=== PATIENT | male | born 1980 | race Caucasian/White ===

== ENCOUNTER 2016-10-13 16:10 | Emergency (ER) | payer BC, OTHER ==
[2016-10-13 16:46] VITALS: BP 116/70
[2016-10-13] MEDS ORDERED: DOXYcycline CAP(*) 100 MG PO ONE (17:19)
--- NOTE | 2016-10-13 17:26 | UC ---
Skin Complaint HPI - HPI Summary HPI Summary: THIS MORNING PULLED TICK FROM RIGHT FOOT, HAD BEEN HIKING TWO DAYS PRIOR, UNSURE OF HOW LONG IT HAD BEEN THERE. SMALL AMOUNT OF REDNESS SURROUNDING PLACE WHERE TICK HAD BEEN EMBEDDED - History of Current Complaint Chief Complaint: UCLowerExtremity Time Seen by Provider: 10/13/16 17:05 Stated Complaint: RIGHT FOOT COMPLAINT Hx Obtained From: Patient Onset/Duration: Gradual Onset, Lasting Days, Resolved - REMOVED BY PATIENT USING TWEEZERS AT HOME Skin Exposure Onset/Duration: Days Ago Onset Severity: Mild Current Severity: None Location: Discrete - RIGHT DORSUM OF FOOT Aggravating: Nothing Alleviating: Nothing Associated Signs & Symptoms: Positive: Rash - RIGHT DORSUM OF FOOT Related History: Possible Reaction to: Insect - Allergy/Home Medications Allergies/Adverse Reactions: Allergies Allergy/AdvReac Type Severity Reaction Status Date / Time No Known Allergies Allergy Verified 10/13/16 16:42 Review of Systems Constitutional: Negative Skin: Rash - RIGHT DORSUM OF FOOT. Eyes: Negative ENT: Negative Respiratory: Negative Cardiovascular: Negative Gastrointestinal: Negative Genitourinary: Negative Motor: Negative Neurovascular: Negative Musculoskeletal: Negative Neurological: Negative Psychological: Negative All Other Systems Reviewed And Are Negative: Yes PMH/Surg Hx/FS Hx/Imm Hx Previously Healthy: Yes Endocrine History Of: Denies: Diabetes, Thyroid Disease Cardiovascular History Of: Denies: Cardiac Disorders, Hypertension Respiratory History Of: Denies: COPD, Asthma GI/ History Of: Denies: Ulcer - Surgical History Surgical History: Yes Surgery Procedure, Year, and Place: tonsilectomy - Family History Known Family History: Positive: None - Social History Occupation: Employed Full-time Lives: With Family Alcohol Use: Occasionally Substance Use Type: None Smoking Status (MU): Never Smoked Tobacco - Immunization History Most Recent Influenza Vaccination: none Most Recent Tetanus Shot: UTD Most Recent Pneumonia Vaccination: N/A Physical Exam Triage Information Reviewed: Yes Appearance: Well-Appearing, No Pain Distress, Well-Nourished Vital Signs: Initial Vital Signs Temp 98.1 F 10/13/16 16:42 Pulse 64 10/13/16 16:42 Resp 18 10/13/16 16:42 BP 116/70 10/13/16 16:42 Pulse Ox 99 10/13/16 16:42 Vital Signs Reviewed: Yes Eye Exam: Normal ENT Exam: Normal ENT: Positive: Normal ENT inspection, Hearing grossly normal, TMs normal Dental Exam: Normal Neck exam: Normal Neck: Positive: Supple, Nontender Respiratory Exam: Normal Respiratory: Positive: Chest non-tender, Lungs clear, Normal breath sounds, No respiratory distress Cardiovascular Exam: Normal Cardiovascular: Positive: RRR, No Murmur, Pulses Normal Abdominal Exam: Normal Abdomen Description: Positive: Nontender, No Organomegaly Course/Dx - Differential Diagnoses - Skin Complaint Differential Diagnoses: Tick Born Illness - Diagnoses Provider Diagnoses: TICK BITE. TICK BITE PROPHYLAXIS Discharge - Discharge Plan Condition: Stable Disposition: HOME Patient Education Materials: Tick Bite (ED) Referrals: [facility] [Outside] Non Staff,Doctor [Primary Care Provider] -
== END 2016-10-13 17:35 | disposition home or self-care (01) ==
LOC: UCCORT 16:10
DX: S90.861A Insect bite (nonvenomous), right foot, initial encounter (principal); W57.XXXA Bitten or stung by nonvenomous insect and other nonvenomous arthropods, initial encounter; Y93.9 Activity, unspecified; Y92.9 Unspecified place or not applicable
CPT/HCPCS: 99202; A9270-GY; G0463